=== PATIENT | male | born 1945 | race Caucasian/White ===

== ENCOUNTER 2021-02-17 19:55 | Emergency (ER) | payer MEDICARE, OTHER ==
[~2021-02-17] VITALS: Ht 172.7 cm; Wt 88.5 kg
[~2021-02-17 19:55] MED LIST: AZITHROMYCIN 2250 MG PO; CRESTOR40 MG PO; DOXYCYCLINE 10100 MG PO; FLAGYL500 MG PO; FLEXERIL PO; MEDROLDOSEPACK PO; PROMETH-CODEIN 65 ML PO; PROTONIX 20 MG20 M1 PO; VENTOLIN HFA 1818 GM INH; ZETIA10 MG PO
[2021-02-17] MEDS ORDERED: OMEPRAZOLE40 MG PO (20:11)
[2021-02-17] MEDS ORDERED: FAMOTIDINE 20 M20 MG PO (20:12)
[2021-02-17] MEDS ORDERED: COQ-1030 MG PO (20:12)
[2021-02-17] MEDS ORDERED: METROGEL-VAGINA70 GM TOP (20:13)
[2021-02-17 20:38] LABS: ABSOLUTE BASOPHILS 0.1 thou/uL (0.0-0.2); ABSOLUTE EOSINOPHILS 0.1 thou/uL (0.0-0.7); ABSOLUTE LYMPHOCYTES 1.5 thou/uL (0.8-5.3); ABSOLUTE MONOCYTES 0.7 thou/uL (0.0-1.2); ABSOLUTE NEUTROPHILS 5.8 thou/uL (1.6-8.1); BASOPHILS 0.6 %; EOSINOPHILS 1.4 %; HEMATOCRIT 47.1 % (42.0-52.0); HEMOGLOBIN 16.3 gm/dL (14.0-18.0); LYMPHOCYTES 18.1 %; MCH 30.5 pg (26.0-34.0); MCHC 34.7 g/dL (28.0-37.0); MONOCYTES 8.1 %; MPV 7.8 fl. (7.2-11.1); NUCLEATED RBCS 0 /100WBC; PLATELET COUNT* 228 thou/uL (150-400); POLYS 71.8 %; RBC 5.36 mil/uL (4.50-6.00); RDW-CV 14.9 % (10.5-14.5); WBC 8.1 thou/uL (4.0-11.0)
[2021-02-17 20:48] LABS: CALCIUM 9.4 mg/dL (8.5-10.1); CREATININE 1.4 mg/dL (0.6-1.3)
[2021-02-17 20:56] LABS: ALBUMIN 4.2 g/dL (3.4-5.0); TOTAL BILIRUBIN 0.5 mg/dL (<0.1-1.0); TOTAL PROTEIN 7.8 g/dL (6.4-8.2)
[2021-02-17 21:55] LABS: URINE BILIRUBIN NEGATIVE (Negative); URINE BLOOD NEGATIVE (Negative); URINE CLARITY CLEAR; URINE COLOR YELLOW; URINE GLUCOSE-RANDOM NEGATIVE (Negative); URINE KETONES NEGATIVE (Negative); URINE LEUKOCYTES-REFLEX NEGATIVE (Negative); URINE NITRITE-REFLEX NEGATIVE (Negative); URINE PROTEIN NEGATIVE (Negative); URINE UROBILINOGEN 0.2 E.U./dl (0.2-1.0)
[2021-02-17] MEDS ORDERED: ZOFRAN ODT4 MG PO (22:39)
[2021-02-17] MEDS ORDERED: HYDROCODON-ACE1 EAC7 PO (22:39)
[2021-02-17] MEDS ORDERED: DICYCLOMINE HCL20 MG PO (22:39)
[2021-02-18 00:05] VITALS: BP 148/73
--- NOTE | 2021-02-18 09:32 | EKG ---
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1945 Requested By: Yamila Shaw Order Number: [id number] MD: Jb Rey Measurements Intervals [place] Rate: 77 P: 72 HI: 142 QRS: -79 QRSD: 113 T: 83 QT: 378 QTc: 428 Interpretive Statements Sinus rhythm Left anterior fascicular block Abnormal R-wave progression, early transition Probable left ventricular hypertrophy Anterior Q waves, possibly due to LVH Baseline wander in lead(s) II,III,aVF No previous ECG available for comparison Electronically Signed On 02-18-2021 9:32:00 CDT by Jb Rey [email or web address] <ELECTRONICALLY SIGNED> By: Jb Rey MD, FAC 02/18/21931 21 21 Jb Rey MD, FAC /EPI
== END 2021-02-18 00:05 | disposition home or self-care (01) ==
LOC: M.ERS 19:55
PROVIDERS: Personal Emergency Response Attendant
DX: K52.9 Noninfective gastroenteritis and colitis, unspecified (principal); Z88.1 Allergy status to other antibiotic agents; Z90.49 Acquired absence of other specified parts of digestive tract; Z90.89 Acquired absence of other organs